=== PATIENT | male | born 1960 | race African-American/Black ===

== ENCOUNTER 2017-01-11 14:18 | Emergency (ER) | payer MEDICAID, OTHER ==
[~2017-01-11] VITALS: Ht 167.6 cm; Wt 72.5 kg
[~2017-01-11 14:18] MED LIST: LISI-587 PO; LYRI150C PO; NAPR500T PO; SERT-129 PO; ZOCO40TA PO
[2017-01-11 14:38] VITALS: BP 176/101; PULSE 58; RESP 20; TEMP 99.5
[2017-01-11] MEDS ORDERED: SODIUM CHLOR 0.9% 1000 ML INJ 1,000 ML IV SCH (14:54)
[2017-01-11] MEDS ORDERED: MORPHINE SULFATE 4 MG/ML INJ IV PUSH ONE (15:00)
[2017-01-11] MEDS ORDERED: SODIUM CHLORIDE 0.9% FLUSH 10 ML FLUSH IVF PRN (15:00)
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
[2017-01-11 15:11] VITALS: BP 167/94; PULSE 55; RESP 20; O2SAT 99
[2017-01-11 15:20] VITALS: O2SAT 99
[2017-01-11 15:32] LABS: BASOPHIL % 0.6 % (0.0-2.0); EOSINOPHIL # 0.1 TH/MM3 (0-0.4); EOSINOPHIL % 1.9 % (0.0-4.0); HEMATOCRIT 44.1 % (39.0-51.0); HEMO FLAGS DIFF FINAL; LYMPH % 17.1 % (9.0-44.0); LYMPHOCYTE # 1.1 TH/MM3 (1.0-4.8); MEAN CELL VOLUME 84.5 FL (80.0-100.0); MEAN CORPUSCULAR HEMOGLOBIN 28.3 PG (27.0-34.0); MEAN CORPUSCULAR HGB CONC 33.5 % (32.0-36.0); MONO % 6.3 % (0.0-8.0); NEUT % 74.1 % (16.0-70.0); PLATELET COUNT 183 TH/MM3 (150-450); RED BLOOD COUNT 5.22 MIL/MM3 (4.50-5.90); WHITE BLOOD COUNT 6.6 TH/MM3 (4.0-11.0)
[2017-01-11 15:35] LABS: POTASSIUM 3.7 MEQ/L (3.5-5.1)
[2017-01-11 15:38] LABS: BICARBONATE 26.9 MEQ/L (21.0-32.0)
[2017-01-11 15:40] LABS: APTT (PATIENT) 24.1 SEC (24.3-30.1); PROTHROMBIN TIME - PATIENT 10.9 SEC (9.8-11.6)
[2017-01-11] MEDS ORDERED: IOHEXOL 350 MG/ML 10 ML VIAL (for RAD DIAG) IVCONTRAST ONE (15:40)
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
[2017-01-11 16:05] VITALS: BP 173/97; PULSE 60; RESP 18; O2SAT 98
[2017-01-29] MEDS ORDERED: GABA300C5 PO (15:28)
[2017-01-29] MEDS ORDERED: LISI-587 PO (15:29)
[2017-01-29] MEDS ORDERED: NAPR500T PO (15:29)
== END 2017-01-11 16:45 | disposition home or self-care (01) ==
LOC: PHED 14:18
DX: M54.5 Low back pain (principal); S06.9X9A Unspecified intracranial injury with loss of consciousness of unspecified duration, initial encounter; R10.9 Unspecified abdominal pain; I10 Essential (primary) hypertension; Z86.59 Personal history of other mental and behavioral disorders; Z87.891 Personal history of nicotine dependence; Y08.89XA Assault by other specified means, initial encounter
CPT/HCPCS: 70450; 71010; 74177; 80048; 85025; 85610; 85730; 86850; 86900; 86901; 96374; 99285; J2270; J7030; Q9967

== ENCOUNTER → 2017-08-25 | Outpatient (CLI) | payer OTHER ==
[~2017-08-25] MED LIST changes: +GABA300C5 PO; -LYRI150C PO; -NAPR500T PO; +NAPR500T2 PO
--- NOTE | 2017-08-25 12:56 | RADRPT ---
EXAM DATE/TIME: 08/25/2017 12:41 [facility] COMPARISON: No previous studies available for comparison. INDICATIONS : Evaluate for plantar fasciatis. Patient states pain starts in center of foot and radiates up entire l eg to hip. MEDICAL HISTORY : Hypertension. Bioplar, spinal stenosis. SURGICAL HISTORY : Appendectomy. ENCOUNTER: Initial ACUITY: 1 day PAIN SCORE: 10/10 LOCATION: Right Foot FINDINGS: Three view examination of the right foot demonstrates no soft tissue swelling, dislocation, or fractu re. The tarsal bones appear intact. The interphalangeal and metatarsophalangeal joints are intact. The calcaneus is intact. Bony mineralization is normal. CONCLUSION: 1. Unremarkable radiographs of the right foot. Please note that radiographs are of very limited utili ty in evaluation for plantar fasciitis. Consider MRI examination if there is continued clinical jeri rn. Dano Becerril MD on August 25, 2017 at 12:51 Board Certified Radiologist. This report was verified electronically.
--- NOTE | 2017-08-25 13:07 | RADRPT ---
EXAM DATE/TIME: 08/25/2017 12:43 [facility] COMPARISON: FOOT RIGHT COMPLETE ([id number]), August 25, 2017, 12:41. INDICATIONS : Evaluate for plantar fasciatis. Patient states pain starts in center of foot and radiates up entire l eg to hip. MEDICAL HISTORY : Hypertension. Bioplar, spinal stenosis. SURGICAL HISTORY : Appendectomy. ENCOUNTER: Initial ACUITY: 1 day PAIN SCORE: 10/10 LOCATION: Left Foot FINDINGS: Three view examination of the left foot demonstrates no soft tissue swelling, dislocation, or fractur e. The tarsal bones appear intact. The interphalangeal and metatarsophalangeal joints are intact. The calcaneus is intact. Bony mineralization is normal. CONCLUSION: Unremarkable examination of the left foot. Cristian Boston MD on August 25, 2017 at 12:52 Board Certified Radiologist. This report was verified electronically.
== END ==
LOC: HRAD 12:14
DX: M72.2 Plantar fascial fibromatosis (principal)
CPT/HCPCS: 73630